=== PATIENT | female | born 1980 | race Caucasian/White ===

== ENCOUNTER 2017-07-28 09:10 | Inpatient (IN) | payer BC ==
[~2017-07-28] VITALS: Ht 167.6 cm; Wt 99.0 kg
[2017-07-28] VITALS (10 sets, daily range): BP systolic 108–127; BP diastolic 56–92; PULSE 65–73; RESP 18; TEMP 97.7–98
[2017-07-28] MEDS ORDERED: LACTATED RINGER'S 1000 ML INJ 1,000 ML IV PRN (09:49)
[2017-07-28] MEDS ORDERED: PREN29TA PO (09:55)
[2017-07-28] MEDS ORDERED: SODIUM CHLORIDE 0.9% FLUSH 10 ML FLUSH IV FLUSH PRN (10:00)
[2017-07-28] MEDS ORDERED: LIDOCAINE HCL 1% 50 ML VIAL I-DERMAL PRN (10:00)
[2017-07-28] MEDS ORDERED: SODIUM CHLORID 0.9% 500 ML INJ 500 ML IV PRN (10:00)
[2017-07-28] MEDS ORDERED: OXYTOCIN 30 UNITS-500ML PREMIX 500 ML IV ONE (10:00)
[2017-07-28] MEDS ORDERED: LIDOCAINE HCL 1% 50 ML VIAL INFIL PRN (10:00)
[2017-07-28] MEDS ORDERED: MISOPROSTOL 100 MCG TAB VAGINAL ONE ×2 (10:00→15:45)
[2017-07-28] MEDS ORDERED: CITRIC ACID-SODIUM CITRATE LIQ 30 ML UDC PO SCH (10:00)
[2017-07-28] MEDS ORDERED: ONDANSETRON HCL 4 MG/2 ML VIAL IV PUSH PRN (10:00)
[2017-07-28] MEDS ORDERED: MINERAL OIL 10 ML VIAL TOPICAL PRN (10:00)
[2017-07-28] MEDS ORDERED: SODIUM CHLOR 0.9% 1000 ML INJ 1,000 ML IV PRN (10:09)
[2017-07-28 10:45] LABS: AUTOMATED NEUTROPHIL # 4.1 TH/MM3 (1.8-7.7); BASOPHIL % 0.5 % (0.0-2.0); EOSINOPHIL # 0.1 TH/MM3 (0-0.4); EOSINOPHIL % 0.8 % (0.0-4.0); HEMATOCRIT 33.8 % (35.0-46.0); HEMOGLOBIN 11.9 GM/DL (11.6-15.3); LYMPH % 31.6 % (9.0-44.0); LYMPHOCYTE # 2.2 TH/MM3 (1.0-4.8); MEAN CELL VOLUME 89.6 FL (80.0-100.0); MEAN CORPUSCULAR HEMOGLOBIN 31.5 PG (27.0-34.0); MEAN CORPUSCULAR HGB CONC 35.1 % (32.0-36.0); MEAN PLATELET VOLUME 7.9 FL (7.0-11.0); MONO % 6.8 % (0.0-8.0); MONOCYTE # 0.5 TH/MM3 (0-0.9); NEUT % 60.3 % (16.0-70.0); PLATELET COUNT 283 TH/MM3 (150-450); RED BLOOD COUNT 3.77 MIL/MM3 (4.00-5.30); RED CELL DISTRIBUTION WIDTH 14.9 % (11.6-17.2); WHITE BLOOD COUNT 6.9 TH/MM3 (4.0-11.0)
[2017-07-28] MEDS: LACTATED RINGER'S 1000 ML INJ 1,000 ML IV SCH ×2 (11:10→18:49)
[2017-07-28 11:14] LABS: BACTERIA, URINE RARE /hpf; BILIRUBIN, URINE NEG (NEG); BLOOD, URINE SMALL (NEG); GLUCOSE,URINE NEG (NEG); KETONE, URINE NEG (NEG); MUCUS URINE FEW /lpf (OCC); NITRITE,URINE NEG (NEG); PH, URINE 6.5 (5.0-8.5); SQUAMOUS EPITHELIAL CELL URINE 1 /hpf (0-5); URINE COLOR YELLOW (YELLW/STRAW); URINE LEUKOCYTE ESTERASE NEG (NEG)
[2017-07-28] MEDS ORDERED: MISOPROSTOL 25 MCG TAB VAGINAL ONE (19:00)
[2017-07-28] MEDS ORDERED: ZOLPIDEM TARTRATE 5 MG TAB PO ONE (21:00)
[2017-07-28] MEDS: SODIUM CHLORIDE 0.9% FLUSH 10 ML FLUSH IV FLUSH SCH (21:00)
[2017-07-29] VITALS (87 sets, daily range): BP systolic 92–145; BP diastolic 44–101; PULSE 49–160; RESP 18; TEMP 97.4–98.6
[2017-07-29] MEDS: LACTATED RINGER'S 1000 ML INJ 1,000 ML IV SCH ×2 (01:49→10:10)
[2017-07-29] MEDS ORDERED: OXYTOCIN 30 UNITS/NS 500ML PREMIX IV PRN (02:00)
[2017-07-29] MEDS: SODIUM CHLORIDE 0.9% FLUSH 10 ML FLUSH IV FLUSH SCH (09:00)
[2017-07-29] MEDS ORDERED: fentaNYL 2MCG-BUPIV 0.125% INJ 100 ML ONE ×2 (09:39→16:09)
[2017-07-29] MEDS ORDERED: DIPHTH/TETANUS/ACEL PERTUSSIS (BOOSTER) 0.5 ML VIAL/PFS IM ONE (16:00)
[2017-07-29] MEDS ORDERED: MEASLES, MUMPS, RUBELLA VACCINE 0.5 ML VIAL SQ ONE (16:00)
[2017-07-29] MEDS ORDERED: ACETAMINOPHEN 325 MG TAB PO PRN (18:15)
[2017-07-29] MEDS ORDERED: OXYTOCIN 30 UNITS-500ML PREMIX 500 ML IV SCH (18:15)
[2017-07-29] MEDS ORDERED: OXYTOCIN 30 UNITS-500ML PREMIX 500 ML IV ONE (18:15)
[2017-07-29] MEDS ORDERED: SODIUM CHLORIDE 0.9% FLUSH 10 ML FLUSH IV FLUSH PRN (18:15)
[2017-07-29] MEDS ORDERED: WITCH HAZEL 50%/GLYCERIN 12.5% 40 PAD JAR TOPICAL PRN (18:15)
[2017-07-29] MEDS ORDERED: ALUMINUM/MAGNESIUM/SIMETH 30 ML CUP PO PRN (18:15)
[2017-07-29] MEDS ORDERED: ONDANSETRON ODT 4 MG TAB PO PRN (18:15)
[2017-07-29] MEDS ORDERED: BENZOCAINE 20% TOPICAL SPRAY 60 ML CAN TOPICAL PRN (18:15)
--- NOTE | 2017-07-29 18:19 | PD.OB.DELI ---
Weeks gestation: 40 Gest age assessed date: Jul 28, 2017 Pt started active labor?: No Medical induction of labor?: Yes Medical induction start date: Jul 28, 2017 Artificial rupture of membrane: Yes Artificial ROM date: Jul 29, 2017 Artifical ROM time: 08:20 Anesthesia: Epidural Episiotomy: None Vaginal Delivery: Normal Presentation: Occiput anterior Nuchal Cord: None Delayed cord clamping (45 sec): Yes Infant: Male Delivery date: Jul 29, 2017 Delivery time: 17:39 One Minute : 8 Five Minute : 9 Placenta: Spontaneous delivery, Intact, Uterus explored +, 3 vessel cord Laceration: 2 deg Repair: Vicryl running Estimated blood loss: 300cc Additional Information nice delivery of [facility] family except mom is here Lalo Allen MD Jul 29, 2017 18:19
[2017-07-29] MEDS: IBUPROFEN 800 MG TAB PO PRN (18:41)
--- NOTE | 2017-07-29 18:59 | MH ---
cc: Lalo Allen MD, R John MD DATE OF ADMISSION: 07/28/2017 REASON FOR ADMISSION: 1. Induction of labor. 2. Post dates. HISTORY OF PRESENT ILLNESS: Ms. Retana is a 37-year-old female, para 0-0-0-0 who has been followed in my office and is 40 weeks and 4 days. Her problems are gestational diabetes with the sugars well controlled, no insulin, and she is post dates. I put her in the hospital to start her on some Cytotec and consider rupture of membranes and Pitocin as soon as we get an adequate cervix. She understands the risks and benefits of the procedure and has agreed to proceed. I am concerned because she was on the borderline of ____ diabetes and now she is over 40 weeks. Her cervix is fairly inducible with a Bishops score of 8. PAST OBSTETRICAL HISTORY: Para 0-0-0-0. PAST GYNECOLOGICAL HISTORY: Negative. PAST SURGICAL HISTORY: Remarkable for augmentation mammoplasty. PAST MEDICAL HISTORY: Remarkable for anemia, gestational diabetes and advanced maternal age. SOCIAL HISTORY: She is . She has never smoked. She does not drink alcohol or take drugs. FAMILY HISTORY: Noncontributory. ALLERGIES: NO KNOWN DRUG ALLERGIES. CURRENT MEDICATIONS: vitamins 1 p.o. daily and iron 1 p.o. daily. REVIEW OF SYSTEMS: No headache, no scatoma, no chest pain, no chest pressure. No shortness of breath, no GI complaints. She reports good movement. No rupture of membranes or bleeding, no muscle pains or aches. PHYSICAL EXAMINATION: GENERAL: Well-developed well-nourished female in no acute distress. CHEST: Clear to auscultation and percussion. HEART: Regular rate and rhythm without murmur. ABDOMEN: Gravid, nontender. The estimated weight is 7 pounds 3 ounces. PELVIC: External genitalia is normal. Vagina is clean. Cervix is 3 cm, 60% effaced, vertex -2, soft, mid plane. ASSESSMENT AND PLAN: 1. Intrauterine at 40 weeks and 4 days. 2. Gestational diabetes mellitus. Her sugars are fairly well controlled. She did not need insulin, but she did have some high fastings which she really tried to keep under 100 and she did for the most part. I do not think this baby is very big. I think her pelvis is adequate. 3. Anemia. She has been on the iron. We will see how that goes once she checks in. R. MD ANI Vasquez/SA/rh , 06:30 PM , 06:52 PM
[2017-07-29] MEDS ORDERED: ZOLPIDEM TARTRATE 5 MG TAB PO PRN (21:00)
[2017-07-29] MEDS ORDERED: SODIUM CHLORIDE 0.9% FLUSH 10 ML FLUSH IV FLUSH SCH (21:00)
[2017-07-29] MEDS: DOCUSATE SODIUM 50 MG/SENNA 8.6 MG TAB PO PRN (22:23)
[2017-07-30] MEDS: IBUPROFEN 800 MG TAB PO PRN ×3 (02:52→18:50)
[2017-07-30] MEDS: oxyCODONE/ACETAMINOPHEN 5 MG/325 MG TAB PO PRN ×6 (02:52→22:48)
[2017-07-30 08:00] VITALS: BP 106/69; PULSE 75; RESP 20; TEMP 97.6
--- NOTE | 2017-07-30 08:06 | HHI.OB ---
Subjective Post Day: 1 Remarks , taking percocet and motrin for pain Objective Vitals/I&O Vital Signs Date Time Temp Pulse Resp B/P (MAP) Pulse Ox O2 Delivery O2 Flow Rate FiO2 07/29/17 20:45 98.6 72 18 119/65 (83) 07/29/17 19:16 118/86 (97) 07/29/17 19:15 98.0 18 07/29/17 19:00 62 106/74 (85) 07/29/17 18:46 92 102/79 (87) 07/29/17 18:31 114 106/67 (80) 07/29/17 18:16 69 112/63 (79) 07/29/17 18:15 77 18 07/29/17 18:01 112/79 (90) 07/29/17 18:00 18 07/29/17 17:46 77 96/63 (74) 07/29/17 17:30 117 116/63 (80) 07/29/17 17:15 18 07/29/17 17:15 85 123/69 (87) 07/29/17 17:01 76 119/44 (69) 07/29/17 16:58 18 07/29/17 16:56 98.0 07/29/17 16:45 57 114/51 (72) 07/29/17 16:31 62 110/53 (72) 07/29/17 16:15 55 123/61 (81) 07/29/17 16:01 56 113/63 (80) 07/29/17 16:00 18 07/29/17 15:46 50 121/63 (82) 07/29/17 15:31 61 126/63 (84) 07/29/17 15:28 98.2 18 07/29/17 15:16 67 07/29/17 15:16 116/76 (89) 07/29/17 15:01 108/78 (88) 07/29/17 15:01 69 07/29/17 14:56 98.2 18 07/29/17 14:45 58 110/55 (73) 07/29/17 14:30 54 109/61 (77) 07/29/17 14:15 67 111/63 (79) 07/29/17 14:00 68 18 112/62 (79) 07/29/17 13:46 55 116/63 (80) 07/29/17 13:31 58 126/69 (88) 07/29/17 13:29 98.1 18 07/29/17 13:15 59 117/69 (85) 07/29/17 13:01 50 113/60 (77) 07/29/17 12:46 52 118/79 (92) 07/29/17 12:31 55 110/75 (87) 07/29/17 12:26 18 07/29/17 12:15 49 110/70 (83) 07/29/17 12:01 54 105/64 (78) 07/29/17 12:00 18 07/29/17 11:46 53 101/55 (70) 07/29/17 11:31 54 101/51 (68) 07/29/17 11:24 18 07/29/17 11:16 52 102/55 (71) 07/29/17 11:02 56 92/49 (63) 07/29/17 11:01 61 93/50 (64) 07/29/17 11:00 18 07/29/17 11:00 97.4 07/29/17 10:46 57 123/58 (79) 07/29/17 10:45 59 07/29/17 10:40 58 07/29/17 10:35 57 07/29/17 10:32 62 106/67 (80) 07/29/17 10:30 62 118/101 (107) 07/29/17 10:30 64 07/29/17 10:29 18 07/29/17 10:25 72 107/64 (78) 07/29/17 10:25 74 07/29/17 10:20 68 106/63 (77) 07/29/17 10:20 65 07/29/17 10:15 72 112/61 (78) 07/29/17 10:15 73 07/29/17 10:10 65 07/29/17 10:10 68 112/59 (76) 07/29/17 10:05 67 114/61 (78) 07/29/17 10:05 66 07/29/17 10:00 70 07/29/17 10:00 65 121/74 (90) 07/29/17 09:59 18 07/29/17 09:56 74 133/81 (98) 07/29/17 09:55 80 07/29/17 09:53 73 130/87 (101) 07/29/17 09:50 86 07/29/17 09:31 62 119/67 (84) 07/29/17 09:01 78 116/69 (85) 07/29/17 08:31 160 145/93 (110) 07/29/17 08:30 18 Objective Remarks GENERAL: Well-nourished, well-developed patient. CARDIOVASCULAR: Regular rate and rhythm without murmurs, gallops, or rubs. RESPIRATORY: Breath sounds equal bilaterally. No accessory muscle use. ABDOMEN/GI: Abdomen soft, non-tender. Fundus: Firm, non-tender at umbilicus. GENITOURINARY: Light to moderate bleeding. EXTREMITIES: No cyanosis or edema, non-tender, without signs of DVT. Medications and IVs Current Medications Medications (Trade) Dose Ordered Sig/Gabriel Route Start Time Stop Time Status Last Admin (NS Flush) 2 ml BID IV FLUSH 07/29/17 21:00 (NS Flush) 2 ml UNSCH PRN IV FLUSH 07/29/17 18:15 (Tylenol) 650 mg Q4H PRN PO 07/29/17 18:15 (Motrin) 800 mg Q8H PRN PO 07/29/17 18:15 07/30/17 02:52 (Percocet 5-325 Mg) 1 tab Q4H PRN PO 07/29/17 18:15 07/30/17 06:36 (Americaine 20% Top Spr) 1 spray Q4H PRN TOPICAL 07/29/17 18:15 07/29/17 22:23 (Tucks Pads) 1 applic QID PRN TOPICAL 07/29/17 18:15 07/29/17 22:22 (Roxi-Colace) 2 tab Q12H PRN PO 07/29/17 18:15 07/29/17 22:23 (Ambien) 5 mg HS PRN PO 07/29/17 21:00 (Mag-Al Plus Susp Liq) 15 ml Q8H PRN PO 07/29/17 18:15 (Zofran Odt) 4 mg Q6H PRN PO 3/13/18 18:15 (Stuartnatal Plus 3 ) 1 tab DAILY PO 07/30/17 09:00 Assessment/Plan Problem List: (1) Vaginal delivery ICD Codes: O80 - Encounter for full-term uncomplicated delivery Assessment and Plan PPD #1 , Dr Allen's pt routine PP care Discharge Planning routine Attending Attestation seen by Sarahy Kang MD Jul 30, 2017 08:06
[2017-07-30] MEDS: MULTIVIT/MIN/PREN/FOL AC/IRON PRENATAL TAB PO SCH (10:35)
[2017-07-30 20:00] VITALS: BP 137/72; PULSE 74; RESP 16; TEMP 97.8
[2017-07-30] MEDS: DOCUSATE SODIUM 50 MG/SENNA 8.6 MG TAB PO PRN (22:47)
[2017-07-31] MEDS: IBUPROFEN 800 MG TAB PO PRN ×2 (03:04→11:24)
[2017-07-31] MEDS: oxyCODONE/ACETAMINOPHEN 5 MG/325 MG TAB PO PRN ×2 (03:04→06:41)
[2017-07-31 08:00] VITALS: BP 125/82; PULSE 67; RESP 20; TEMP 98
--- NOTE | 2017-07-31 08:24 | HHI.OB ---
Subjective Post Day: 2 Objective Vitals/I&O Vital Signs Date Time Temp Pulse Resp B/P (MAP) Pulse Ox O2 Delivery O2 Flow Rate FiO2 07/31/17 08:00 98.0 67 20 125/82 (96) 07/30/17 20:00 97.8 74 16 137/72 (93) Objective Remarks GENERAL: Well-nourished, well-developed patient. CARDIOVASCULAR: Regular rate and rhythm without murmurs, gallops, or rubs. RESPIRATORY: Breath sounds equal bilaterally. No accessory muscle use. ABDOMEN/GI: Abdomen soft, non-tender. Fundus: Firm, non-tender at umbilicus. GENITOURINARY: Light to moderate bleeding. EXTREMITIES: No cyanosis or edema, non-tender, without signs of DVT. Medications and IVs Current Medications Medications (Trade) Dose Ordered Sig/Gabriel Route Start Time Stop Time Status Last Admin (NS Flush) 2 ml BID IV FLUSH 07/29/17 21:00 (NS Flush) 2 ml UNSCH PRN IV FLUSH 07/29/17 18:15 (Tylenol) 650 mg Q4H PRN PO 07/29/17 18:15 (Motrin) 800 mg Q8H PRN PO 07/29/17 18:15 07/31/17 03:04 (Percocet 5-325 Mg) 1 tab Q4H PRN PO 07/29/17 18:15 07/31/17 06:41 (Americaine 20% Top Spr) 1 spray Q4H PRN TOPICAL 07/29/17 18:15 07/29/17 22:23 (Tucks Pads) 1 applic QID PRN TOPICAL 07/29/17 18:15 07/29/17 22:22 (Roxi-Colace) 2 tab Q12H PRN PO 07/29/17 18:15 07/30/17 22:47 (Ambien) 5 mg HS PRN PO 07/29/17 21:00 (Mag-Al Plus Susp Liq) 15 ml Q8H PRN PO 07/29/17 18:15 (Zofran Odt) 4 mg Q6H PRN PO 07/29/17 18:15 (Stuartnatal Plus 3 ) 1 tab DAILY PO 07/30/17 09:00 07/30/17 10:35 Assessment/Plan Problem List: (1) Vaginal delivery ICD Codes: O80 - Encounter for full-term uncomplicated delivery Assessment and Plan PPD #2 Pt doing well pain well managed with oral pain medication, using heating pad as well encouraged stool softener breast feeding routine PP care Discharge Planning dc home today Emely Hill Jul 31, 2017 08:24
--- NOTE | 2017-07-31 08:26 | HHI.DS ---
Admission Date Jul 28, 2017 at 09:10 Discharge Date: Jul 31, 2017 Admitting Diagnosis term advanced maternal age induction of labor Diagnosis: (1) Advanced maternal age, 1st ICD Codes: O09.519 - Supervision of elderly primigravida, unspecified trimester (2) Vaginal delivery ICD Codes: O80 - Encounter for full-term uncomplicated delivery Delivery Date: Jul 29, 2017 Vaginal Delivery: Normal Infant: Male Brief History term advanced maternal age induction of labor Hospital Course routine care Pt Condition on Discharge: Good Discharge Disposition: Discharge Home Discharge Instructions Diet Instructions: As Tolerated, No Restrictions Additional Diet Instructions: Drink at least 8 - 16 oz bottles of water a day Activities You Can Perform: Shower Only-No Bath, Sitz Bath Activities to Avoid: Lifting/Bending, Sexual Activity Additional Activity Instruc.: No driving until off pain medications Do not lift anything heavier than your baby in an infant carrier Follow up Referrals: [employer]IVE - 2 Weeks @ [facility] [place] New Medications: Oxycodone HCl/Acetaminophen (Oxycodone-Acetaminophen 5-325) 5 Mg-325 Mg Tablet 1 TAB PO Q4H PRN for pain 4-10, #20 TAB Continued Medications: Vit-Iron Carbonyl ( Plus Iron 29-1 mg) 29 Mg Iron-1 Mg Tab 1 TAB PO DAILY for Nutritional Supplement, #30 TAB 0 Refills Emely Hill Jul 31, 2017 08:26
[2017-07-31] MEDS: MULTIVIT/MIN/PREN/FOL AC/IRON PRENATAL TAB PO SCH (09:04)
[2017-07-31] MEDS: DOCUSATE SODIUM 50 MG/SENNA 8.6 MG TAB PO PRN (09:04)
[2017-07-31] MEDS ORDERED: OXYC1TAB63 PO (12:18)
== END 2017-07-31 17:41 | disposition home or self-care (01) | DRG 775 ==
LOC: H2EB 09:10 → H1EA 07-29 20:32 → HNUR 07-30 02:58 → H1EA 07-30 03:23
PROVIDERS: ADMIT Obstetrics & Gynecology; ATTEND Obstetrics & Gynecology
PROC: 10E0XZZ Delivery of Products of Conception, External Approach (ICD-10-PCS; principal; 2017-07-29)
PROC: 0KQM0ZZ Repair Perineum Muscle, Open Approach (ICD-10-PCS; 2017-07-29)
PROC: 3E0P7VZ Introduction of Hormone into Female Reproductive, Via Natural or Artificial Opening (ICD-10-PCS; 2017-07-29)
PROC: 10907ZC Drainage of Amniotic Fluid, Therapeutic from Products of Conception, Via Natural or Artificial Opening (ICD-10-PCS; 2017-07-29)
PROC: 3E0R3BZ Introduction of Anesthetic Agent into Spinal Canal, Percutaneous Approach (ICD-10-PCS; 2017-07-29)
PROC: 00HU33Z Insertion of Infusion Device into Spinal Canal, Percutaneous Approach (ICD-10-PCS; 2017-07-29)
DX: O24.429 Gestational diabetes mellitus in childbirth, unspecified control (principal); O99.02 Anemia complicating childbirth; D64.9 Anemia, unspecified; O48.0 Post-term pregnancy; O70.1 Second degree perineal laceration during delivery; Z37.0 Single live birth; Z3A.40 40 weeks gestation of pregnancy
CPT/HCPCS: 59025; 80307; 81001; 85025; 86900; 86901; 88307; G0481; J2590; J7120